=== PATIENT | male | born 1945 | race Caucasian/White ===

== ENCOUNTER 2016-05-11 09:55 | Outpatient (CLI) | payer MEDICARE | END 2016-05-11 09:56 | disposition home or self-care (01) | DX: E11.9 Type 2 diabetes mellitus without complications (principal); I10 Essential (primary) hypertension; I67.82 Cerebral ischemia; Z13.228 Encounter for screening for other metabolic disorders ==

== ENCOUNTER 2016-09-25 08:47 | Outpatient (CLI) | payer MEDICARE ==
--- NOTE | 2016-09-25 10:43 | Ultrasound Report ---
ULTRASOUND OF BLADDER: 09/25/2016 CLINICAL HISTORY: The patient has chronic abdominal pain relieved by bowel movement. TECHNIQUE: Real-time scanning was performed with scheduling representative static images obtained. FINDINGS: The bladder shows normal bilateral ureteral jets. The distal left ureter shows minimal dilatation with the diameter of 0.77 cm. This is a nonspecific finding especially since an excellent left ureteral jet is noted. This excellent left ureteral jet indicates no significant obstruction. The dilatation of the distal ureter is not within the bladder wall and, therefore, most likely does not represent a cystocele. The bladder lumen shows no significant abnormality. Prevoid bladder volume is 234 cubic centimeters. Postvoid bladder volume is 67 cubic centimeters. Mild increased postvoid residual is noted. The patient's prostate shows mild enlargement measuring 4.3 cm by 4.5 cm by 4.2 cm for a volume of 42.3 cubic centimeters. IMPRESSION: 1. MILD INCREASED POSTVOID RESIDUAL OF 67 cc IS NOTED IN PATIENT'S BLADDER. 2. MILD PROSTATIC ENLARGEMENT IS NOTED WITH A VOLUME OF 42.3 CUBIC CENTIMETERS. MILD NONSPECIFIC CALCIFICATION IS NOTED IN THE PROSTATE MOST LIKELY A RESULT OF BENIGN PROSTATIC HYPERTROPHY. 3. MILD NONSPECIFIC DILATATION OF THE DISTAL LEFT URETER IS NOTED WITHOUT EVIDENCE OF OBSTRUCTION. EXCELLENT LEFT URETERAL JET IS SEEN WITHIN PATIENT'S BLADDER. JOB #: [id number] EXT JOB #: [id number] FRENCH
== END 2016-09-25 08:48 | disposition home or self-care (01) ==
LOC: DI 08:47
PROVIDERS: ATTEND Surgery
DX: N40.0 Benign prostatic hyperplasia without lower urinary tract symptoms (principal); N28.82 Megaloureter
CPT/HCPCS: 76857

== ENCOUNTER 2016-10-07 10:17 | Outpatient (CLI) | payer MEDICARE ==
[2016-10-07] MEDS ORDERED: IOPAMIDOL-300 100 ML VIAL IVP ONE (12:10)
[2016-10-07] MEDS ORDERED: IOPAMIDOL-300 50 ML VIAL PO ONE (12:10)
--- NOTE | 2016-10-07 14:22 | CT Report ---
CT OF THE ABDOMEN AND PELVIS WITH CONTRAST: 10/07/2016 CLINICAL INDICATION: Chronic pain. COMPARISON: 09/23/2014. TECHNIQUE: Axial CT images of the abdomen and pelvis were obtained with 100 mL of Isovue-300 intraven ously as well as oral contrast. FINDINGS: Limited evaluation of the lung bases appears unremarkable. ABDOMEN: The liver, spleen, pancreas, kidneys and adrenal glands appear unremarkable. The gallbladder is not dilated. No bowel dilatation, free gas, or free fluid is present. No abdominal adenopathy is seen. PELVIS: A few sigmoid diverticula are seen, without CT evidence of diverticulitis. No pelvic adenopat hy or free fluid is present. The osseous structures demonstrate degenerative changes. IMPRESSION: NO EVIDENT ETIOLOGY FOR PATIENT'S PAIN. NO SIGNIFICANT INTERVAL CHANGE. In accordance with CT protocol optimization, one or more of the following dose reduction techniques w ere utilized for this exam: automated exposure control, adjustment of mA and/or KV based on patient size, or use of iterative reconstructive technique. JOB #: [id number] EXT JOB #:[id number]
== END 2016-10-07 10:18 | disposition home or self-care (01) ==
LOC: LAB 10:17
PROVIDERS: ATTEND Surgery
DX: R10.9 Unspecified abdominal pain (principal)
CPT/HCPCS: 36415; 74177; 82565; Q9967

== ENCOUNTER 2017-10-17 10:52 | Emergency (ER) | payer MEDICARE ==
[2017-10-17 11:31] LABS: BASOPHILS % (AUTO) 0.7 %; EOSINOPHILS # (AUTO) 0.2 10^3/uL (0.0-0.7); EOSINOPHILS % (AUTO) 3.4 %; HGB - HEMOGLOBIN 13.6 g/dL (14.0-18.0); LYMPHOCYTES % (AUTO) 17.8 %; MEAN CORPUSCULAR HEMOGLOBIN 31.2 pg (27.0-31.0); MEAN CORPUSCULAR HGB CONC 33.6 g/dL (32.0-36.0); MEAN CORPUSCULAR VOLUME 92.7 fL (80.0-94.0); MEAN PLATELET VOLUME 8.4 fL (7.4-11.4); MONOCYTES # (AUTO) 0.4 10^3/uL (0.0-1.0); NEUTROPHILS # (AUTO) 3.9 10^3/uL (1.5-6.6); NEUTROPHILS % (AUTO) 71.1 %; PLT - PLATELET COUNT 187 10^3/uL (130-450); RED BLOOD COUNT 4.35 10^6/uL (4.70-6.10); RED CELL DISTRIBUTION WIDTH 12.6 % (12.0-15.0); WHITE BLOOD COUNT 5.5 x10^3/uL (4.8-10.8)
--- NOTE | 2017-10-17 11:41 | ED Physician Documentation ---
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 denies: Nausea, Vomiting, Diarrhea, Bloody / black stool Endocrine: denies: Easy bruising / bleeding Immunocompromised: denies: Immunocompromised PD PAST MEDICAL HISTORY - Past Medical History Past Medical History: Yes Cardiovascular: Hypertension Respiratory: Sleep apnea, CPAP use Neuro: TIA Endocrine/Autoimmune: Type 2 diabetes GI: None : Benign prostate hypertrophy HEENT: None Psych: Depression, Anxiety Musculoskeletal: None Derm: None - Past Surgical History Past Surgical History: Yes General: Colonoscopy HEENT: Cataracts - Present Medications Home Medications: Ambulatory Orders Medication Instructions Recorded Confirmed No Known Home Medications [No 10/17/17 10/17/17 Known Home Medications] Tamsulosin [Flomax] 0.4 mg 10/17/17 traZODone [Desyrel] 50 mg 10/17/17 - Allergies Allergies/Adverse Reactions: Allergies Allergy/AdvReac Type Severity Reaction Status Date / Time demeclocycline HCl * Allergy Respiratory Verified 04/21/16 06:39 [From Declomycin] - Social History Does the pt smoke?: No Smoking Status: Former smoker Does the pt drink ETOH?: No Does the pt have substance abuse?: No - Immunizations Immunizations are current?: Yes Immunizations: Other immun not current - POLST Patient has POLST: No PD ED PE NORMAL - Vitals Vital signs reviewed: Yes - General General: Other (alert calm cooperative) - Cardiac Cardiac: RRR - Respiratory Respiratory: No respiratory distress, Clear bilaterally - Abdomen Abdomen: Soft, Non tender, Other (no focal TTP, no ventral hernia, no rebound or guarding) - Male Male : Other (no hernia) - Derm Derm: Normal color - Neuro Neuro: Alert and oriented X 3 Results - Vitals Vitals: Vital Signs - 24 hr 10/17/17 10/17/17 11:04 11:17 Temperature 36.5 C Heart Rate 91 77 Respiratory 18 17 Rate Blood Pressure 138/72 H 147/81 H O2 Saturation 98 99 Oxygen O2 Source [] Room air O2 Source Room air - EKG (time done) 1116 Rate: Rate (enter#) Rhythm: NSR Intervals: Normal [place] Ischemia: Normal ST segments - Labs Labs: Laboratory Tests 10/17/17 10/17/17 10/17/17 11:23 11:23 11:23 WBC 5.5 RBC 4.35 L Hgb 13.6 L Hct 40.3 L MCV 92.7 MCH 31.2 H MCHC 33.6 RDW 12.6 Plt Count 187 MPV 8.4 Neut # (Auto) 3.9 Lymph # (Auto) 1.0 L Whiteside # (Auto) 0.4 Eos # (Auto) 0.2 Baso # (Auto) 0.0 Absolute Nucleated RBC 0.00 Nucleated RBC % 0.0 Sodium 139 Potassium 4.3 Chloride 103 Carbon Dioxide 29 Anion Gap 7.0 BUN 19 Creatinine 0.9 Estimated GFR (MDRD) 83 L Glucose 119 H Calcium 9.5 Total Bilirubin 0.8 AST 30 ALT 55 Alkaline Phosphatase 74 Troponin I < 0.04 Total Protein 7.3 Albumin 4.0 Globulin 3.3 Albumin/Globulin Ratio 1.2 Lipase 29 - Rads (name of study) AAS Radiology: See rad report (no acute, nl stool volume) PD MEDICAL DECISION MAKING - Sepsis Event Vital Signs: Vital Signs - 24 hr 10/17/17 10/17/17 11:04 11:17 Temperature 36.5 C Heart Rate 91 77 Respiratory 18 17 Rate Blood Pressure 138/72 H 147/81 H O2 Saturation 98 99 Oxygen O2 Source [] Room air O2 Source Room air Departure - Departure Disposition: 01 Home, Self Care Clinical Impression: Constipation Qualifiers: Constipation type: unspecified constipation type Qualified Code(s): K59.00 - Constipation, unspecified Condition: Good Comments: The labs are fine And the xray does not show any significant amount of backed up stool. Follow up with your PMD as needed
[2017-10-17 11:44] LABS: ALBUMIN/GLOBULIN RATIO 1.2 (1.0-2.2); BILIRUBIN,TOTAL 0.8 mg/dL (0.2-1.0); CALCIUM 9.5 mg/dL (8.5-10.3); CREATININE 0.9 mg/dL (0.6-1.2); TOTAL PROTEIN 7.3 g/dL (6.7-8.2)
--- NOTE | 2017-10-17 12:16 | XRAY Report ---
Procedure Date: 10/17/2017 Accession Number: [id number] / [id number] Procedure: XR - Abdomen 2 View X-Ray CPT Code: 74874 FULL RESULT: EXAM: ABDOMEN RADIOGRAPHY EXAM DATE: 10/17/2017 11:55 AM. CLINICAL HISTORY: Diarrhea and weight gain. Decreased bowel movements. COMPARISON: None. TECHNIQUE: 2 views. FINDINGS: Lung Bases: Unremarkable. Bowel Gas Pattern: Within normal limits. No dilated loops or abnormal fluid levels. Still volume appears normal. Free Air: None. Other: Minor scoliosis and moderate degenerative spondylosis changes over lumbar spine is seen. IMPRESSION: No intra-abdominal abnormality is demonstrated including no obstruction or ileus. RADIA
[2017-10-17 12:57] VITALS: BP 154/79
== END 2017-10-17 12:58 | disposition home or self-care (01) ==
LOC: ED 10:52
DX: K59.00 Constipation, unspecified (principal); I10 Essential (primary) hypertension; G47.30 Sleep apnea, unspecified; F04 Amnestic disorder due to known physiological condition; Z86.73 Personal history of transient ischemic attack (TIA), and cerebral infarction without residual deficits; E11.9 Type 2 diabetes mellitus without complications; N40.0 Benign prostatic hyperplasia without lower urinary tract symptoms; Z87.891 Personal history of nicotine dependence
CPT/HCPCS: 36415; 74019; 80053; 83690; 84484; 85025; 93005; 99283

== ENCOUNTER 2018-03-10 10:06 | Outpatient (CLI) | payer MEDICARE ==
[2018-03-10 17:24] LABS: BASOPHILS % (AUTO) 0.4 %; EOSINOPHILS # (AUTO) 0.2 10^3/uL (0.0-0.7); EOSINOPHILS % (AUTO) 3.2 %; HGB - HEMOGLOBIN 13.3 g/dL (14.0-18.0); LYMPHOCYTES # (AUTO) 1.1 10^3/uL (1.5-3.5); LYMPHOCYTES % (AUTO) 20.3 %; MEAN CORPUSCULAR HEMOGLOBIN 29.8 pg (27.0-31.0); MEAN CORPUSCULAR HGB CONC 33.4 g/dL (32.0-36.0); MEAN CORPUSCULAR VOLUME 89.1 fL (80.0-94.0); MEAN PLATELET VOLUME 9.3 fL (7.4-11.4); MONOCYTES # (AUTO) 0.5 10^3/uL (0.0-1.0); MONOCYTES % (AUTO) 9.5 %; NEUTROPHILS # (AUTO) 3.6 10^3/uL (1.5-6.6); NEUTROPHILS % (AUTO) 66.6 %; PLT - PLATELET COUNT 162 10^3/uL (130-450); RED BLOOD COUNT 4.47 10^6/uL (4.70-6.10); RED CELL DISTRIBUTION WIDTH 13.9 % (12.0-15.0); WHITE BLOOD COUNT 5.5 x10^3/uL (4.8-10.8)
[2018-03-10 17:48] LABS: HB2 TOTAL 14.1 g/dL; HEMOGLOBIN A1C 0.57 g/dL; HEMOGLOBIN A1C % 5.9 % (4.6-6.2)
[2018-03-10 17:50] LABS: ALBUMIN/GLOBULIN RATIO 1.4 (1.0-2.2); BILIRUBIN,TOTAL 0.8 mg/dL (0.2-1.0); CALCIUM 9.4 mg/dL (8.5-10.3); CREATININE 0.9 mg/dL (0.6-1.2); TOTAL PROTEIN 6.8 g/dL (6.7-8.2)
== END 2018-03-10 10:07 | disposition home or self-care (01) ==
LOC: LAB.F 10:06
PROVIDERS: ATTEND Nurse Practitioner
DX: R33.9 Retention of urine, unspecified (principal); N40.0 Benign prostatic hyperplasia without lower urinary tract symptoms
CPT/HCPCS: 36415; 80053; 83036; 85025

== ENCOUNTER 2018-06-25 14:23 | Emergency (ER) | payer MEDICARE ==
[2018-06-25 14:48] VITALS: BP 144/66
[2018-06-25] MEDS ORDERED: HYOSCYAMINE SL 0.125 MG TABLET SL STA (15:53)
--- NOTE | 2018-06-25 15:56 | ED Physician Documentation ---
History of Present Illness - Stated complaint Stated Complaint: ABD PX - Chief complaint Chief Complaint: General - History obtained from History obtained from: Patient - History of Present Illness Timing: How many days ago (3) Pain level max: 5 Pain level now: 5 Improved by: nothing Worsened by: nothing - Additonal information Additional information: 72-year-old male presents the emergency department stating that he feels constipated. He is having bowel movements every day still. Has a history of chronic abdominal pain, perceived constipation though no testing has never been positive for this. Had multiple CT scans, ultrasounds, x-rays. He has a hist ory of laxative abuse. No fevers. No vomiting. Normal colonoscopy less than 2 years ago other than polyps. Review of Systems Ten Systems: 10 systems reviewed and negative Constitutional: denies: Fever, Chills Throat: denies: Sore throat Cardiac: denies: Chest pain / pressure Respiratory: denies: Cough GI: denies: Nausea, Vomiting, Diarrhea Skin: denies: Rash Musculoskeletal: denies: Neck pain, Back pain Neurologic: denies: Focal weakness, Numbness, Headache PD PAST MEDICAL HISTORY - Past Medical History Past Medical History: Yes Cardiovascular: Hypertension Respiratory: Sleep apnea, CPAP use Neuro: TIA Endocrine/Autoimmune: Type 2 diabetes GI: Chronic constipation : Benign prostate hypertrophy HEENT: None Psych: Depression, Anxiety Musculoskeletal: None Derm: None - Past Surgical History Past Surgical History: Yes General: Colonoscopy HEENT: Cataracts - Present Medications Home Medications: Ambulatory Orders Medication Instructions Recorded Confirmed Tamsulosin [Flomax] 0.4 mg 10/17/17 traZODone [Desyrel] 50 mg 10/17/17 Hyoscyamine Sulfate [Levsin-Sl] 0.125 mg SL Q8H PRN #10 tab.subl 06/25/18 - Allergies Allergies/Adverse Reactions: Allergies Allergy/AdvReac Type Severity Reaction Status Date / Time demeclocycline HCl * Allergy Respiratory Verified 04/21/16 06:39 [From Declomycin] - Social History Does the pt smoke?: No Smoking Status: Former smoker Does the pt drink ETOH?: No Does the pt have substance abuse?: No - Immunizations Immunizations are current?: Yes Immunizations: Other immun not current - POLST Patient has POLST: No PD ED PE NORMAL - Vitals Vital signs reviewed: Yes - General General: Alert and oriented X 3, No acute distress, Well developed/nourished - HEENT HEENT: PERRL, Moist mucous membranes - Neck Neck: Supple, no meningeal sign - Cardiac Cardiac: RRR - Respiratory Respiratory: No respiratory distress, Clear bilaterally - Abdomen Abdomen: Normal bowel sounds, Soft, Non tender, Non distended, Other (normal percussion) - Rectal Rectal: Other (normal rectal exam with soft stool in rectal vault) - Derm Derm: Warm and dry - Extremities Extremities: No edema - Neuro Neuro: Alert and oriented X 3 - Psych Psych: Normal mood, Normal affect Results - Vitals Vitals: Vital Signs - 24 hr 06/25/18 14:46 Temperature 36.5 C Heart Rate 82 Respiratory 14 Rate Blood Pressure 144/66 H O2 Saturation 98 Oxygen O2 Source [With Activity] Room air O2 Source Room air PD MEDICAL DECISION MAKING - ED course Complexity details: reviewed old records, considered differential, d/w patient ED course: Patient with a long history of chronic abdominal pain and perceived co nstipation, though this is never been proven. He has records detailing all of his negative workups. Including his history of laxative abuse. Do not feel it is prudent to prescribe him more laxatives at this time. He is very well- appearing, nontoxic. Afebrile. Tolerating p.o. without difficulty. We will trial him on Levsin and see if this helps his pain. Patient counseled regarding signs and symptoms for which I believe and urgent re-evaluation would be necessary. Patient with good understanding of and agreement to plan and is comfortable going home at this time This document was made in part using voice recognition software. While efforts are made to proofread this document, sound alike and grammatical errors may occur. Departure - Departure Disposition: Home, Self Care Clinical Impression: Chronic abdominal pain Condition: Good Instructions: ED Abdominal Pain Unkn Cause Follow-Up: Tania Stein ARNP [Primary Care Provider] - Within 3 Days Prescriptions: Hyoscyamine Sulfate [Levsin-Sl] 0.125 mg SL Q8H PRN #10 tab.subl PRN Reason: Abdominal Pain Comments: Return if you worsen. Follow-up with your doctor for further evaluation and care.
== END 2018-06-25 16:32 | disposition home or self-care (01) ==
LOC: ED 14:23
DX: R10.9 Unspecified abdominal pain (principal); I10 Essential (primary) hypertension; E11.9 Type 2 diabetes mellitus without complications; Z87.891 Personal history of nicotine dependence
CPT/HCPCS: 99283; A9270; 80053; 83690; 85025

== ENCOUNTER 2018-09-05 08:00 | Outpatient (CLI) | payer MEDICARE ==
[2018-09-05 18:17] LABS: BASOPHILS % (AUTO) 0.9 %; EOSINOPHILS # (AUTO) 0.2 10^3/uL (0.0-0.7); EOSINOPHILS % (AUTO) 3.8 %; HGB - HEMOGLOBIN 14.2 g/dL (14.0-18.0); LYMPHOCYTES # (AUTO) 1.3 10^3/uL (1.5-3.5); LYMPHOCYTES % (AUTO) 25.8 %; MEAN CORPUSCULAR HEMOGLOBIN 29.3 pg (27.0-31.0); MEAN CORPUSCULAR HGB CONC 33.1 g/dL (32.0-36.0); MEAN CORPUSCULAR VOLUME 88.5 fL (80.0-94.0); MEAN PLATELET VOLUME 9.6 fL (7.4-11.4); MONOCYTES # (AUTO) 0.4 10^3/uL (0.0-1.0); MONOCYTES % (AUTO) 7.3 %; NEUTROPHILS % (AUTO) 62.2 %; PLT - PLATELET COUNT 168 10^3/uL (130-450); RED BLOOD COUNT 4.87 10^6/uL (4.70-6.10); RED CELL DISTRIBUTION WIDTH 13.9 % (12.0-15.0); WHITE BLOOD COUNT 4.9 x10^3/uL (4.8-10.8)
[2018-09-05 18:36] LABS: HB2 TOTAL 15.9 g/dL; HEMOGLOBIN A1C 0.67 g/dL
== END 2018-09-05 23:59 | disposition home or self-care (01) ==
LOC: LAB.S 08:00
PROVIDERS: ATTEND Nurse Practitioner Family
DX: E11.9 Type 2 diabetes mellitus without complications (principal); F41.9 Anxiety disorder, unspecified; F32.9 Major depressive disorder, single episode, unspecified
CPT/HCPCS: 36415; 82043; 83036; 84443; 85025

== ENCOUNTER 2019-10-22 14:55 | Outpatient (CLI) | payer MEDICARE | END 2019-10-22 14:56 | disposition short-term general hospital (02) | LOC: EMS 14:55 | PROVIDERS: ATTEND Surgery | DX: R41.0 Disorientation, unspecified (principal); R46.89 Other symptoms and signs involving appearance and behavior; R51 Headache | CPT/HCPCS: A0425; A0427 ==